=== PATIENT | female | born 1960 | race African-American/Black ===

== ENCOUNTER → 2017-04-21 | Outpatient (CLI) | payer BC ==
--- NOTE | 2017-04-22 18:30 | PCVCIMAG ---
APPROVED REPORT Exam: Stress Echocardiogram Indication: HTN, HLP, ABNORMAL CALCIUM SCORE Stress Nurse: Anna Harmon RN Status: routine Ht: 5 ft 9 in HR: 77 bpm BP: 130/70 mmHg Rhythm: NSR Procedure The patient underwent an Exercise Stress Test using the Buck Protocol. Blood pressure, heart rate, and EKG were monitored. An Echocardiogram was performed by microwave radio technician in four stages in quad fashion. At peak stress, four selected images were obtained and placed side by side with resting images for comparison. Stress Test Details Stress Test: Exercise stress testing was performed using a Buck protocol. HR Resting HR: 77 bpmMax Heart Rate (APMHR): 162 bpm Max HR Achieved: 162 bpmTarget HR (85% APMHR): 137 bpm % of APMHR: 100 HR response to stress: Normal HR response to stress BP Resting BP: 128/78 mmHg Max BP: 160/82 mmHg ECG Resting ECG: Sinus Rhythm Stress ECG: Sinus Rhythm Clinical Reason for Termination: Maximal effort Exercise duration: 9 min sec Highest Stage Achieved: Stage 3: 3.4 mph at 14% grade. Exercise capacity: 10.40 METs Overall Exercise Capacity for Age: Normal Pre-Stress Echo The resting Echocardiogram showed normal left ventricular contractility with an estimated Ejection Fraction of about >55%. Normal wall motion in all segments on baseline images. Post-Stress Echo The stress Echocardiogram showed normal left ventricular contractility with an estimated Ejection Fraction of about 60-65%. Normal augmentation of wall motion in all segments on post stress images. Conclusion Clinical Response: Non-ischemic Exercise Capacity: Average Stress ECG Response: Non-ischemic Stress Echo Images: Non-ischemic Other Information Study Quality: Adequate
== END | disposition home or self-care (01) ==
LOC: PCVCIMAG 13:28
PROVIDERS: ATTEND Internal Medicine Cardiovascular Disease
DX: I25.10 Atherosclerotic heart disease of native coronary artery without angina pectoris (principal); I65.23 Occlusion and stenosis of bilateral carotid arteries; I10 Essential (primary) hypertension; E78.5 Hyperlipidemia, unspecified; Z82.49 Family history of ischemic heart disease and other diseases of the circulatory system; Z90.710 Acquired absence of both cervix and uterus; Z79.82 Long term (current) use of aspirin
CPT/HCPCS: 93325; 93351; 93880